=== PATIENT | male | born 1965 | race Caucasian/White ===

== ENCOUNTER 2017-03-17 18:38 | Inpatient (IN) | payer OTHER ==
[~2017-03-17] VITALS: Ht 193 cm; Wt 96.2 kg
--- NOTE | ~2017-03-17 | HP ---
Unit #: [id number] #: [id number] Patient: LUIS MIGUEL ALVARADO [id number] [facility] [address] [place] [address] [id number] I MR#: [id number] NAME: LUIS MIGUEL ALVARADO ROOM: P204 Age: 52 Sex: M Admission Date: 03/17/2017 : 1965 Attending Physician: Reena Loya M.D. Admitting Physician: Reena Loya M.D. 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 He also has a history of alcohol abuse. PAST MEDICAL HISTORY 1. Hypertension. 2. Coronary artery disease. 3. Osteoarthritis. 4. Spinal stenosis. PAST SURGICAL HISTORY Heart cath. 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 He lives alone. He has heavy alcohol use, but he could not quantify this. FAMILY MEDICAL HISTORY Noncontributory. ALLERGIES Lisinopril and Xanax. CURRENT MEDICATIONS Coreg, Zoloft, aspirin, amlodipine, naltrexone, and Calcium. REVIEW OF SYSTEMS CONSTITUTIONAL: No fever or chills. HEENT: Denies any sore throat, ear pain or runny nose. CARDIOVASCULAR: Denies chest pain, irregular heart rhythm or palpitations. CHEST: Denies shortness of breath or cough. No hemoptysis. GASTROINTESTINAL: Denies nausea, vomiting, diarrhea or chronic constipation. ENDOCRINE: Denies history of increased thirst or urination. No recent significant weight loss or gain. GENITOURINARY: Denies dysuria, frequency, or hematuria. SKIN: Denies any rashes. HEMATOLOGIC: Denies history of increased bleeding or bruising. MUSCULOSKELETAL: Denies any hot, swollen joints. No generalized muscle pain. NEUROLOGIC: Denies problems with vision or speech. No frequent, severe headaches. No numbness, tingling or weakness in any extremities. Denies Unit #: [id number] #: [id number] Patient: LUIS MIGUEL ALVARADO loss of bladder or bowel control. PHYSICAL EXAMINATION GENERAL: He is awake, alert, and oriented in no acute distress. VITAL SIGNS: Temperature 98.1, heart rate 56, respirations 16, blood pressure 120/72. HEIGHT: 6 feet 4. WEIGHT: 212 pounds. SKIN: Warm and dry without rash or lesion. HEENT: Normocephalic. TMs not viewed. Oral and nasal passages clear. Conjunctivae clear. PERRLA. EOMs intact. NECK: Supple without lymphadenopathy or thyromegaly. HEART: Regular rate and rhythm without murmur. LUNGS: Clear. ABDOMEN: Soft, nontender. : Not done. EXTREMITIES: No evidence of cyanosis, clubbing or edema. Moves all without focal deficit. NEUROLOGICAL: Grossly within normal limits. Cranial Nerves: II: Visual baer are intact. III, IV AND : Extraocular movements are intact. Pupils are equal, round and reactive to light. V: Facial sensation is grossly normal. VII: Facial movements and expression are normal. VIII: Auditory acuity grossly intact. IX, X: Uvula is midline. Phonation is normal. XI: Patient shrugs shoulders and turns head normally. XII: Tongue protrudes in the midline. Sensory and Motor Function: Sensory and motor sensation is grossly normal. Motor: moves all extremities well. IMPRESSION 1. Psychiatric admission. 2. Hypertension. 3. Coronary artery disease. 4. Osteoarthritis. 5. Spinal stenosis. RECOMMENDATIONS PSYCHIATRIC: Per psychiatrist. MEDICAL: No contraindication to participate in this facility activities. MEDICAL PROGNOSIS Fair. MEDICAL CONDITION Stable. Dictated by... Luis A Gómez TD: 03/18/2017 15:08 JOB #: [id number] Unit #: [id number] #: [id number] Patient: LUIS MIGUEL ALVARADO HISTORY AND PHYSICAL Page 1 of 1 X RAJENDRA KELLEY APRN HISTORY AND PHYSICAL
--- NOTE | ~2017-03-17 | PN ---
Unit #: [id number] #: [id number] Patient: LUIS MIGUEL AGRAWAL [id number] [facility] [address] [place] [address] [id number] I MR#: [id number] NAME: LUIS MIGUEL AGRAWAL ROOM: P204 Age: 52 Sex: M Admission Date: 03/17/2017 : 1965 Attending Physician: Reena Loya M.D. Admitting Physician: Reena Loya M.D. Primary Care Physician: Generic Doctor Not In System [facility] PROGRESS NOTES DATE 03/22/2017 DISCUSSION Mr. Agrawal is a 52-year-old white male who was seen today and chart was reviewed and case was discussed with the staff. He has been doing fairly well and appears to be coming out of the detox without any complications as he has been cooperative with treatment recommendations and has been taking medications and tolerating them fairly well with no reported side effects. MENTAL STATUS EXAMINATION Middle-aged white male who was casually dressed with fair personal hygiene and appears to be in no acute distress or discomfort. He was awake and alert with intact orientation. His mood was anxious with congruent affect. He denies any suicidal or homicidal ideation. His insight and judgement remains slightly impaired. TREATMENT PLAN 1. Will continue on his current medications and treatment protocol. Will monitor his response to the medications and make further adjustments as needed. 2. Will continue to follow up. Dictated by... Marely Huffman/brielle TD: 03/22/2017 17:53 JOB #: [id number] Unit #: [id number] #: [id number] Patient: LUIS MIGUEL AGRAWAL PROGRESS NOTES Page 1 of 1 X Reena Loya MD PROGRESS NOTE
--- NOTE | ~2017-03-17 | DS ---
Unit #: [id number] #: [id number] Patient: [facility] AGRAWAL [id number] [facility] [address] [place] [address] [id number] I MR#: [id number] NAME: LUIS MIGUEL AGRAWAL ROOM: P204 Age: 52 Sex: M Admission Date: 03/17/2017 : 1965 Discharge Date: 03/23/2017 Attending Physician: Reena Loya M.D. Primary Care Physician: Generic Doctor Not In System DISCHARGE SUMMARY IDENTIFICATION DATA Mr. Agrawal is a 52-year-old single white male who is a resident of [place], [place], and was brought to hospital on a voluntary basis. DISCHARGE DIAGNOSES PSYCHIATRIC: Bipolar disorder, most recent episode, depressed, recurrent, moderate, without psychotic features. Alcohol dependence, moderate, in acute withdrawals. MEDICAL: Hypertension. Coronary artery disease. STRESSORS: Moderate psychosocial stressors. HISTORY OF PRESENT ILLNESS Same as in initial psychiatric evaluation. PAST PSYCHIATRIC HISTORY Same as in initial psychiatric evaluation. PAST MEDICAL HISTORY Same as in initial psychiatric evaluation. HOSPITAL COURSE The patient was admitted to the adult psychiatric and chemical dependency unit at [facility] gil[facility]iz and was oriented to the hospital environment. Routine p.r.n. medications were initiated, and he was started back on his home medications, and medications were adjusted, and he was closely monitored. He was started on alcohol detox protocol, and Risperdal was also added into his Zoloft for bipolar and was initially seen to be anxious, withdrawn, unkempt, disheveled, and was seclusive to himself though he was able to come out of the detox without any complications and was willing to continue treatment on outpatient basis. As such it was decided that he will be discharged home. We will continue treatment on outpatient basis. DISCHARGE MEDICATIONS 1. Zoloft 100 mg a day for depression. 2. Risperdal 0.5 mg twice a day for bipolar. CONDITION AT DISCHARGE Stable. PROGNOSIS Fair. Unit #: [id number] #: [id number] Patient: LUIS MIGUEL AGRAWAL Dictated by... Reena Loya M.D. IAA/bzg TD: 03/23/2017 07:20 JOB #: [id number] DISCHARGE SUMMARY Page 1 of 1 X Reena Loya MD DISCHARGE SUMMARY
--- NOTE | ~2017-03-17 | PN ---
Unit #: [id number] #: [id number] Patient: LUIS MIGUEL AGRAWAL [id number] [facility] [address] [place] [address] [id number] I MR#: [id number] NAME: LUIS MIGUEL AGRAWAL ROOM: P204 Age: 52 Sex: M Admission Date: 03/17/2017 : 1965 Attending Physician: Reena Loya M.D. Admitting Physician: Reena Loya M.D. Primary Care Physician: Generic Doctor Not In System [facility] PROGRESS NOTES DATE 03/21/2017 DISCUSSION Mr. Agrawal is a 52-year-old, white male who was seen today and chart was reviewed and case was discussed with the staff. He remains anxious, withdrawn and rather seclusive to himself. Meanwhile, he has been cooperative with treatment recommendations. He has been taking the medication and tolerating them fairly well with no reported side effects. MENTAL STATUS EXAM Middle-aged white male who was casually dressed with fair personal hygiene, appears to be in no acute distress or discomfort. He was awake and alert with impaired attention and concentration. His mood was anxious with congruent affect. He denies any suicidal or homicidal ideation. His insight and judgement remains slightly impaired. TREATMENT PLAN 1. We will continue him on his current treatment protocol. We will monitor his response to the medication and make further adjustments as needed. 2. We will continue to follow up. Dictated by... Marely Huffman/laura TD: 03/22/2017 00:39 JOB #: [id number] Unit #: [id number] #: [id number] Patient: LUIS MIGUEL AGRAWAL PROGRESS NOTES Page 1 of 1 X Reena Loya MD PROGRESS NOTE
--- NOTE | ~2017-03-17 | PA ---
Unit #: [id number] #: [id number] Patient: LUIS MIGUEL ALVARADO [id number] [facility] [address] [place] [address] [id number] I MR#: [id number] NAME: LUIS MIGUEL ALVARADO ROOM: P204 Age: 52 Sex: M Admission Date: 03/17/2017 : 1965 Date of Assessment: 03/17/2017 Attending Physician: Reena Loya M.D. Admitting Physician: Reena Loya M.D. Primary Care Physician: Generic Doctor Not In System PSYCHIATRIC ASSESSMENT DATE OF SERVICE 03/18/2017. IDENTIFYING DATA Mr. Diaz is a 52-year-old single white male, who is a resident of [place], [place], and was self-referred to the hospital on a voluntary basis. 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 Report that he is mad because [facility] and does report increasing depression, anger, agitation, irritability, anxiety, and feeling of hopelessness and anger and homicidal ideation and as such, recommendation for inpatient level of care for safety and stabilization was made. The patient was stepped up to the inpatient unit. SUBSTANCE ABUSE HISTORY The patient reports history of alcohol abuse and dependence, stating that he has been drinking since he was 5 years old "as much as I can get daily." His blood alcohol level was 0.184 upon presentation. He denies any other substance abuse issues. PAST PSYCHIATRIC HISTORY The patient has had history of psychiatric treatment through the [facility] and review of the medical records indicate that currently he is on a combination of Zoloft, Coreg, aspirin, and amlodipine. PAST MEDICAL HISTORY The patient's medical history is significant for hypertension and coronary artery disease. ALLERGIES Xanax and lisinopril. PERSONAL AND SOCIAL HISTORY Unit #: [id number] #: [id number] Patient: LUIS MIGUEL ALVARADO A 52-year-old white male, who reports that he is single, unemployed, and lives alone and has poor social support system. MENTAL STATUS EXAMINATION Middle-aged white male who was casually dressed with fair personal hygiene, appears to be in no acute distress or discomfort. He was awake and alert on interaction with intact orientation to time, place, and person. His mood was anxious with a congruent affect. His speech was slow and restricted in content. His thought processes were disorganized with some looseness of associations and flight of ideas and homicidal ideations. His insight and judgment remain significantly impaired. DIAGNOSTIC IMPRESSION Psychiatric: Bipolar disorder, most recent episode depressed, recurrent, moderate, without psychotic features; alcohol dependence, moderate and acute withdrawals. Medical: Hypertension and coronary artery disease. Stressors: Moderate psychosocial stressors. TREATMENT PLAN 1. The patient has presented with history of mood disorder and substance abuse and has been decompensating and will need inpatient hospitalization for safety and stabilization. We will start him back on his home medications and detox protocol will be initiated as well. 2. Supportive therapy was provided to the patient. 3. Safe, structured, and nourishing environment will be provided. ESTIMATED LENGTH OF STAY 5 to 7 days. ABILITY TO HELP SELF Limited. WILLINGNESS TO HELP SELF The patient appears to be willing to help self. STRENGTHS 1. Communicative. 2. Cooperative. PROBLEMS 1. Chronic dysphoric symptoms. 2. Poor social support system. DISCHARGE CRITERIA This will be contingent upon the patient's ability to show resolution of his depression and anxiety and his ability to stay safe and sober, particularly after discharge from the hospital. Dictated by... Marely Huffman/yang TD: 03/19/2017 01:32 JOB #: [id number] Unit #: [id number] #: [id number] Patient: LUIS MIGUEL ALVARADO PSYCHIATRIC ASSESSMENT Page 1 of 1 X Reena Loya MD X PSYCHIATRIC ASSESSMENT
--- NOTE | ~2017-03-17 | PN ---
Unit #: [id number] #: [id number] Patient: LUIS MIGUEL AGRAWAL [id number] [facility] [address] [place] [address] [id number] I MR#: [id number] NAME: LUIS MIGUEL AGRAWAL ROOM: P204 Age: 52 Sex: M Admission Date: 03/17/2017 : 1965 Attending Physician: Reena Loya M.D. Admitting Physician: Reena Loya M.D. Primary Care Physician: Generic Doctor Not In System [facility] PROGRESS NOTES DATE OF SERVICE: 03/20/2017 SUBJECTIVE Mr. Agrawal is a 52-year-old white male with alcohol dependence and mood disorder, who was seen today and chart was discussed and case was discussed with the staff. He remains anxious, withdrawn, and rather seclusive to himself, though has not shown any agitation or aggression and has been cooperative with treatment recommendations and has been taking medications and tolerating them fairly well. MENTAL STATUS EXAMINATION Middle-aged white male who was casually dressed with fair personal hygiene, appears to be in no acute distress or discomfort. He was awake and alert with intact orientation. His mood was anxious with a congruent affect. He denies any suicidal or homicidal ideations. His insight and judgment remain slightly impaired. TREATMENT PLAN 1. We will continue on his current medications and treatment protocol. We will monitor his response to medications and make further adjustments as needed. 2. We will continue to follow up. Dictated by... Marely Huffman/darinell TD: 03/22/2017 03:02 JOB #: [id number] [facility] PROGRESS NOTES Page 1 of 1 X Reena Loya MD X PROGRESS NOTE
--- NOTE | ~2017-03-17 | PN ---
Unit #: [id number] #: [id number] Patient: LUIS MIGUEL ALVARADO [id number] [facility] [address] [place] [address] [id number] I MR#: [id number] NAME: LUIS MIGUEL ALVARADO ROOM: P204 Age: 52 Sex: M Admission Date: 03/17/2017 : 1965 Attending Physician: Reena Loya M.D. Admitting Physician: Reena Loya M.D. Primary Care Physician: Generic Doctor Not In System [facility] PROGRESS NOTES DATE March 19, 2017 DISCUSSION Mr. Alvarado is a 52-year-old white male, who was seen today and chart was reviewed and the case was discussed with the staff. He, once again, has been exhibiting (1) and made remarks that he knows that Ativan and Librium are addictive but they really help him and if the help him that much why can he not have them, and also denies the addictive potential and addictive nature of the medications and the downward spiral that comes along with it, and he was not showing good insight into his situation, although he did mention that [facility] and [facility] has not been helping him and he would like to come to the outpatient treatment [facility] after he is discharged from the hospital. MENTAL STATUS EXAMINATION Middle-aged white male, who was casually dressed with fair personal hygiene and appears to be in no acute distress or discomfort. He was awake and alert on interaction with intact orientation. His mood is anxious with a congruent affect. He denies any suicidal or homicidal ideations. His insight and judgment remain slightly impaired. TREATMENT PLAN 1. We will continue him on his current medications and treatment protocol, and will monitor his response to the medications, and make further adjustments as needed. 2. We will continue to followup. Dictated by... Marely Huffman/kristina TD: 03/21/2017 11:59 JOB #: [id number] Unit #: [id number] #: [id number] Patient: LUIS MIGUEL ALVARADO PROGRESS NOTES Page 1 of 1 X Reena Loya MD NOTE
[2017-03-18 12:40] LABS: BASOPHIL# 0.2 X10e3 (0-0.3); EOSINOPHIL# 0.5 X10e3 (0-0.7); EOSINOPHIL% 7.9 % (0.0-7.0); HEMATOCRIT 40.6 % (38.0-50.0); HEMOGLOBIN 13.6 gm/dL (13.0-16.0); LYMPHOCYTE# 1.9 X10e3 (1.0-3.5); LYMPHOCYTE% 29.9 % (17.0-45.0); MEAN CELL VOLUME 91.7 FL (83-96); MEAN CORPUSCULAR HEMOGLOBIN 30.7 PG (28-34); MEAN CORPUSCULAR HGB CONC 33.5 g/dL (30-36); MEAN PLATELET VOLUME 8.7 FL (6.5-11.5); MONOCYTE# 0.4 X10e3 (0-1.0); MONOCYTE% 6.8 % (3.0-12.0); NEUTROPHIL# 3.3 X10e3 (1.5-7.1); NEUTROPHIL% 52.4 % (40-75); PLATELET COUNT 206 X10e3 (140-420); RED BLOOD COUNT 4.43 X10e (3.90-5.60); RED CELL DISTRIBUTION WIDTH 13.5 % (11.0-15.5); WHITE BLOOD COUNT 6.2 X10e3 (4.0-10.5)
[2017-03-18 12:44] LABS: DIFF IND NO
[2017-03-18 12:49] LABS: ALBUMIN SERUM 3.3 g/dL (3.5-5.0); BILIRUBIN,TOTAL 0.6 mg/dL (0.2-2.0); BUN/CREATININE RATIO 8.75; CALCIUM SERUM 8.5 mg/dL (8.4-10.2); CREATININE SERUM 0.8 mg/dL (0.6-1.4); GLOM FILT RATE Estimated 101.3 mL/min (>60); POTASSIUM 4.3 mmol/L (3.5-5.1); PROTEIN TOTAL SERUM 5.4 g/dL (6.0-8.3)
[2017-03-19 11:32] LABS: URINE APPEARANCE CLEAR; URINE BILIRUBIN NEG (NEG); URINE BLOOD NEG (NEG); URINE COLOR YELLOW; URINE GLUCOSE NEG (NEG); URINE KETONE NEG (NEG); URINE LEUKOCYTE ESTERASE NEG (NEG); URINE NITRATE NEG (NEG); URINE PROTEIN NEG (NEG); URINE SPECIFIC GRAVITY 1.008 (1.003-1.035); URINE UROBILINOGEN 0.2 MG/DL (NEG)
[2017-03-19 11:45] LABS: AMPHETAMINE NEG (NEG); BARBITURATES NEG (NEG); BENZODIAZEPINES NEG (NEG); COCAINE NEG (NEG); MARIJUANA POS (NEG); OPIATES NEG (NEG); TRICYCLIC ANTIDEPRESSANTS NEG (NEG); U METHADONE NEG (NEG)
== END 2017-03-23 14:26 | disposition home or self-care (01) | DRG 885 ==
LOC: P2S 21:10
PROVIDERS: Psychiatry & Neurology Psychiatry
DX: F31.32 Bipolar disorder, current episode depressed, moderate (principal); R45.850 Homicidal ideations; I10 Essential (primary) hypertension; F10.230 Alcohol dependence with withdrawal, uncomplicated; I25.10 Atherosclerotic heart disease of native coronary artery without angina pectoris; M19.90 Unspecified osteoarthritis, unspecified site
CPT/HCPCS: 80053; 80307; 81003; 85025; 86592